=== PATIENT | male | born 1990 | race Caucasian/White ===

== ENCOUNTER 2021-05-19 12:31 | Emergency (ER) | payer OTHER ==
[2021-05-19 13:44] LABS: BASOPHIL 0.1 % (0-2); EOSINOPHIL 1.2 & (0-5); HCT 42.4 % (42.0-52.0); HGB 14.2 g/dl (13.2-18.0); LYMPHOCYTE 21.3 % (15-48); MCH 31.5 pg (25.0-31.0); MCHC 33.5 g/dL (32.0-36.0); MONOCYTE 10.4 % (0-12); MPV 9.1 fL (6.0-9.5); NEUTROPHIL 66.9 % (41-80); PLT 205 K/uL (150-400); RBC 4.51 M/uL (4.70-6.00); RDW 12.8 % (11.5-14.0); WBC 10.48 K/uL (4.0-10.5)
[2021-05-19 14:03] LABS: ALBUMIN 3.4 g/dL (3.4-5.0); BILIRUBIN - TOTAL 0.4 mg/dL (0.2-1.0); BUN/CREAT RATIO (CALC) 8.6 RATIO; CREATININE 1.05 mg/dL (0.67-1.17); GLOBULIN (CALCULATION) 3.7 g/dL; POTASSIUM 4.3 mmol/L (3.5-5.1); TOTAL PROTEIN 7.1 g/dL (6.4-8.2)
[2021-05-19 14:36] LABS: BILIRUBIN NEGATIVE (NEGATIVE); BLOOD NEGATIVE Ery/uL (NEGATIVE); CLARITY CLEAR (CLEAR); COLOR YELLOW (YELLOW); GLUCOSE (U) NORMAL (NORMAL); LEUKOCYTES NEGATIVE Leu/uL (NEGATIVE); NITRITE NEGATIVE (NEGATIVE); PROTEIN NEGATIVE (NEGATIVE); UROBILINOGEN 0.2 mg/dL (0.2-1.0); pH 6.5 (5.0-9.0)
[2021-05-19] MEDS ORDERED: HYDROCODON-ACE1 EAC2 PO (15:24)
[2021-05-19] MEDS ORDERED: IBUPROFEN800 MG PO (15:24)
== END 2021-05-19 15:39 | disposition home or self-care (01) ==
LOC: FER 12:31
PROVIDERS: Internal Medicine
DX: S40.212A Abrasion of left shoulder, initial encounter (principal); S50.312A Abrasion of left elbow, initial encounter; S80.212A Abrasion, left knee, initial encounter; S80.211A Abrasion, right knee, initial encounter; F17.210 Nicotine dependence, cigarettes, uncomplicated; R10.9 Unspecified abdominal pain; Z98.890 Other specified postprocedural states; Z88.6 Allergy status to analgesic agent; V29.9XXA Motorcycle rider (driver) (passenger) injured in unspecified traffic accident, initial encounter; Y92.410 Unspecified street and highway as the place of occurrence of the external cause
CPT/HCPCS: 36415; 80053; 81003; 83690; 85025; J1170; J2405; Q9967